=== PATIENT | male | born 1990 | race African-American/Black ===

== ENCOUNTER 2017-11-24 20:40 | Emergency (ER) | payer SELFPAY ==
[~2017-11-24] VITALS: Ht 177.8 cm; Wt 86.0 kg
[2017-11-24] MEDS ORDERED: KETOROLAC 60MG/2ML VIAL IM ONE (22:45)
[2017-11-25 01:04] VITALS: BP 122/68
== END 2017-11-25 01:05 | disposition home or self-care (01) ==
LOC: ER 20:40
DX: J03.90 Acute tonsillitis, unspecified (principal); F12.10 Cannabis abuse, uncomplicated; F17.200 Nicotine dependence, unspecified, uncomplicated
CPT/HCPCS: 87070; 87430; 96372; 99284; J1885